=== PATIENT | male | born 1955 | race Caucasian/White ===

== ENCOUNTER 2022-02-24 11:15 | Day surgery (SDC) | payer MEDICARE, BC, OTHER ==
[~2022-02-24] VITALS: Ht 172.7 cm; Wt 99.2 kg
[~2022-02-24 11:15] MED LIST: ALPRAZOLAM; ASPIR-LOW81 MG PO; ASPIRIN 81M81 MG/TA2 PO; AZOR; AZOR 10 MG-20 M1 TAB PO; AZOR 5 MG-20 MG1 TAB PO; COREG; COREG 25MG25 MG/TAB PO; CRESTOR; CRESTOR 10MG10 MG PO; CRESTOR20 MG PO; GLUCOPHAGE1000 MG PO; GLUCOPHAGE500 MG/TAB PO; HYDROCORT CREAM1% TOP; LIPITOR20 MG PO; PACERONE400 MG PO; PERCOCET 5/321 UDTAB PO; XANAX 0.5MG0.5 MG PO; XARELTO10 MG PO; XARELTO20 MG PO
[2022-02-24] MEDS ORDERED: XARELTO20 MG PO (12:05)
[2022-02-24 12:09] VITALS: BP 197/82; PULSE 53
--- NOTE | 2022-02-24 12:29 | NUR ---
Procedure cancelled by Dr Mcmillan.
[2022-02-24] MEDS ORDERED: TAMBOCOR 1100 MG/TAB PO (13:38)
--- NOTE | 2022-02-24 14:09 | NUR ---
Discharge instructions given to pt.pt verbalizes understanding.Pt escorted out via ambulatory.
== END 2022-02-24 14:09 ==
LOC: COL.CAR 11:15
DX: I48.0 Paroxysmal atrial fibrillation (principal); Z53.9 Procedure and treatment not carried out, unspecified reason; E11.9 Type 2 diabetes mellitus without complications